=== PATIENT | male | born 1960 | race Caucasian/White ===

== ENCOUNTER 2016-10-28 15:33 | Emergency (ER) | payer OTHER ==
[2016-10-28 15:36] VITALS: BP 118/80; PULSE 78; TEMP 97.9; BMI 23.6
--- NOTE | 2016-10-28 16:19 | PDOC ---
History of Present Illness - General Chief Complaint: Lethargy Stated Complaint: NOT FEELING WELL Time Seen by Provider: 10/28/16 15:42 History Source: Patient Exam Limitations: No Limitations - History of Present Illness Initial Comments: 10/28/16 15:58 56-year-old male presents the emergency room with complaints of generalized fatigue, weakness, and dry mouth. 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 Patient states mother is prediabetic but denies any predisposing factors for him stating his last blood work done by Dr. Garza was normal including his A1c. Patient has no urinary complaints, cough, recent travel, recent illness, recent change in weight or diet. Severity: mild Associated Symptoms: reports: malaise, weakness Past History - Past Medical History Allergies/Adverse Reactions: Allergies Allergy/AdvReac Type Severity Reaction Status Date / Time No Known Drug Allergies Allergy Verified 10/28/16 15:34 Home Medications: Ambulatory Orders NK [No Known Home Medication] 10/28/16 Anemia: No Asthma: No Cancer: No Cardiac Disorders: No CVA: No COPD: No CHF: No Dementia: No Diabetes: No GI Disorders: No Disorders: No HTN: No Hypercholesterolemia: No Liver Disease: No Seizures: No Thyroid Disease: No - Surgical History Abdominal Surgery: No Appendectomy: No Cardiac Surgery: No Cholecystectomy: No Lung Surgery: No Neurologic Surgery: No Orthopedic Surgery: No - Psycho/Social/Smoking Cessation Hx Anxiety: No Suicidal Ideation: No Smoking History: Never smoked Have you smoked in the past 12 months: No Hx Alcohol Use: No Drug/Substance Use Hx: No Substance Use Type: None Hx Substance Use Treatment: No Patient Lives Alone: No Lives with/in: parents Review of Systems - Review of Systems Able to Perform ROS?: Yes Constitutional: Yes: Malaise, Weakness HEENTM: Yes: Other (dry mouth) Respiratory: No: Symptoms reported Cardiac (ROS): No: Symptoms Reported ABD/GI: No: Symptoms Reported : No: Symptoms Reported Musculoskeletal: Yes: Muscle Weakness (mild generalized) Integumentary: No: Symptoms Reported Neurological: Yes: Weakness Endocrine: No: Symptoms Reported Hematologic/Lymphatic: No: Symptoms Reported *Physical Exam - Vital Signs Last Vital Signs Temp Pulse Resp BP Pulse Ox 97.9 F 78 18 118/80 100 10/28/16 15:35 10/28/16 15:35 10/28/16 15:35 10/28/16 15:35 10/28/16 15:35 - Physical Exam General Appearance: Yes: Nourished, Appropriately Dressed. No: Apparent Distress HEENT: positive: EOMI, ROSE, TMs Normal, Pharynx Normal (dry tongue) Neck: positive: Supple. negative: Lymphadenopathy (R), Lymphadenopathy (L) Respiratory/Chest: positive: Lungs Clear, Normal Breath Sounds. negative: Respiratory Distress, Accessory Muscle Use Cardiovascular: positive: Regular Rhythm, Regular Rate. negative: Murmur Gastrointestinal/Abdominal: positive: Soft. negative: Tenderness Integumentary: positive: Normal Color, Dry, Warm Neurologic: positive: Normal Mood/Affect, Motor Strength 5/5 (ambulatory) ED Treatment Course - LABORATORY CBC & Chemistry Diagram: 10/28/16 16:05 10/28/16 16:05 Medical Decision Making - Medical Decision Making 10/28/16 16:00 Patient with complaints of dry mouth, generalized fatigue and malaise or driving home today. Patient exhibited no acute findings except for noted dry off and is without abnormal vital signs. Patient was ordered for CBC comp and UA 10/28/16 17:42 Laboratory Tests 10/28/16 10/28/16 16:05 16:05 Sodium 141 Potassium 3.9 Chloride 104 Carbon Dioxide 28 Anion Gap 9 BUN 29 H D Creatinine 0.8 Random Glucose 92 Calcium 9.1 Total Bilirubin 0.9 D AST 16 D ALT 27 D Alkaline Phosphatase 60 Total Protein 7.2 Albumin 3.8 Urine Protein 1+ H Urine Ketones 1+ H Urine Nitrite Negative Ur Leukocyte Esterase Negative Laboratory Tests 10/28/16 16:05 WBC 5.6 Hgb 15.3 Hct 43.7 Plt Count 214 Neutrophils % 82.3 Lymphocytes % 5.0 L D Monocytes % 10.8 H *DC/Admit/Observation/Transfer Diagnosis at time of Disposition: Mild dehydration - Discharge Dispostion Disposition: HOME Condition at time of disposition: Good - Referrals Referrals: Boyd Roque MD [Primary Care Provider] - - Patient Instructions Printed Discharge Instructions: DI for Dehydration -- Adult Additional Instructions: Drink plenty of fluids and eat small frequent meals throughout the day . please bring copy of blood work with you to your PCP.
[2016-10-28 16:39] LABS: BASOPHIL 0.3 % (0-2.0); EOSINOPHIL 1.6 % (0-4.5); MEAN CELL VOLUME 91.6 fl (80-96); MEAN PLT VOLUME 7.8 fl (7.5-11.1); NEUTROPHILS 82.3 % (42.8-82.8); PLATELET COUNT 214 K/MM3 (134-434); RDW 12.5 % (11.9-15.9); WHITE BLOOD COUNT 5.6 K/mm3 (4.0-10.0)
[2016-10-28 16:41] LABS: URINE APPEARANCE SLCLOUDY; URINE BILIRUBIN NEGATIVE (NEGATIVE); URINE BLOOD NEGATIVE (NEGATIVE); URINE COLOR AMBER; URINE GLUCOSE (UA) NEGATIVE (NEGATIVE); URINE KETONE 1+ (NEGATIVE); URINE LEUK ESTERASE NEGATIVE (NEGATIVE); URINE NITRITE NEGATIVE (NEGATIVE)
[2016-10-28 16:44] LABS: URINE PROTEIN 1+ (NEGATIVE)
[2016-10-28 17:22] LABS: URINE MUCUS MANY; URINE RBC 1 /hpf (0-3); URINE WBC 2 /hpf (3-5)
[2016-10-28 17:23] LABS: ALBUMIN 3.8 g/dl (3.4-5.0); ANION GAP 9 (8-16); BILIRUBIN,TOTAL 0.9 mg/dL (0.2-1.0); CALCIUM 9.1 mg/dL (8.5-10.1); CO2 28 mmol/L (21-32); CREATININE 0.8 mg/dL (0.7-1.3); GLUCOSE,RANDOM 92 mg/dL (74-106); SGOT/AST 16 U/L (15-37); SGPT/ALT 27 U/L (12-78); TOT PROT 7.2 g/dl (6.4-8.2)
[2016-10-28 17:24] LABS: ALK PHOS 60 U/L (45-117)
== END 2016-10-28 17:47 | disposition home or self-care (01) ==
LOC: JERFT 15:33
DX: E86.0 Dehydration (principal)
CPT/HCPCS: 36415; 80053; 81003; 81015; 85025; 99281-25

== ENCOUNTER 2018-07-06 19:34 | Emergency (ER) | payer OTHER ==
[2018-07-06 19:36] VITALS: BP 112/65; PULSE 96; TEMP 98.5; BMI 25.1
[2018-07-06] MEDS ORDERED: IBUPROFEN 600 MG TABLET (FP) PO ONE ×2 (20:38→20:39)
[2018-07-06] MEDS ORDERED: DIPHTH,PERTUSS(ACELL),TET 0.5 ML DISP.SYRIN IM ONE ×2 (20:38→20:39)
--- NOTE | 2018-07-06 20:38 | PDOC ---
History of Present Illness - General Chief Complaint: Pain, Acute Stated Complaint: FALL Time Seen by Provider: 07/06/18 19:50 History Source: Patient - History of Present Illness Initial Comments: 07/06/18 20:39 57 year old male c/o right knee pain s/p fall off a loading dock 5 ft high landing on to the knees. denies head trauma or pain. no swelling. patient is noted to have an abrasion at the site. last tetanus up to date. Past History - Past Medical History Allergies/Adverse Reactions: Allergies Allergy/AdvReac Type Severity Reaction Status Date / Time No Known Drug Allergies Allergy Verified 07/06/18 19:36 Home Medications: Ambulatory Orders NK [No Known Home Medication] 10/28/16 Anemia: No Asthma: No Cancer: No Cardiac Disorders: No CVA: No COPD: No CHF: No Dementia: No Diabetes: No GI Disorders: No Disorders: No HTN: No Hypercholesterolemia: No Liver Disease: No Seizures: No Thyroid Disease: No - Surgical History Abdominal Surgery: No Appendectomy: No Cardiac Surgery: No Cholecystectomy: No Lung Surgery: No Neurologic Surgery: No Orthopedic Surgery: No - Suicide/Smoking/Psychosocial Hx Smoking History: Never smoked Have you smoked in the past 12 months: No Hx Alcohol Use: No Drug/Substance Use Hx: No Substance Use Type: None Hx Substance Use Treatment: No Review of Systems - Review of Systems Able to Perform ROS?: Yes Is the patient limited Ukrainian proficient: No Musculoskeletal: Yes: Other (right knee pain) *Physical Exam - Vital Signs Last Vital Signs Temp Pulse Resp BP Pulse Ox 98.5 F 96 H 18 112/65 96 07/06/18 19:34 07/06/18 19:34 07/06/18 19:34 07/06/18 19:34 07/06/18 19:34 - Physical Exam General Appearance: Yes: Appropriately Dressed Musculoskeletal: positive: Normal Inspection Extremity: positive: Normal Capillary Refill, Normal Inspection, Normal Range of Motion, Other (right knee able to leg raise. no swelling. small abrasion at the knee) ED Treatment Course - RADIOLOGY Radiology Studies Ordered: Category Date Time Status KNEE 2 POS-RIGHT [RAD] Stat Radiology 07/06/18 19:48 Taken Progress Note - Progress Note Progress Note: A: abrasion; right knee pain P: NSAIDS RICE *DC/Admit/Observation/Transfer Diagnosis at time of Disposition: Abrasion Knee pain, right Qualifiers: Chronicity: acute Qualified Code(s): M25.561 - Pain in right knee - Discharge Dispostion Disposition: HOME - Referrals Referrals: Boyd Roque MD [Primary Care Provider] - Adalid Cartagena MD [Staff Physician] - Call tomorrow - Patient Instructions Printed Discharge Instructions: DI for Knee Pain Additional Instructions: apply ice to the area you may ibuprofen every 6 hours as needed for pain. elevate and rest as much as possible follow up with your doctor as soon as possible. - Post Discharge Activity Forms/Work/School Notes: Back to Work
== END 2018-07-06 21:08 | disposition home or self-care (01) ==
LOC: JERFT 19:34
PROC: 3E0234Z Introduction of Serum, Toxoid and Vaccine into Muscle, Percutaneous Approach (ICD-10-PCS; principal; 2018-07-06)
DX: S80.211A Abrasion, right knee, initial encounter (principal); W17.89XA Other fall from one level to another, initial encounter; Y93.89 Activity, other specified; Y92.89 Other specified places as the place of occurrence of the external cause; Y99.8 Other external cause status
CPT/HCPCS: 73560-TC-RT-FY; 90715; 99281-25